=== PATIENT | male | born 1955 | race Caucasian/White ===

== ENCOUNTER 2018-09-14 10:29 | Emergency (ER) | payer OTHER ==
[2018-09-14 12:48] VITALS: BP 146/80
--- NOTE | 2018-09-14 12:56 | ED Physician Documentation ---
History of Present Illness - Stated complaint Stated Complaint: THROAT PX - Chief complaint Chief Complaint: Heent - History obtained from History obtained from: Patient, Family - History of Present Illness Timing: Today Pain level max: 3 Pain level now: 3 - Additonal information Additional information: 63-year-old male with sore throat for the past day. His grandchildren are sick with streptococcal pharyngitis. Concerned about same. No vomiting. No abdominal pain. Has felt warm today. No cough. Better with rest and worse with swallowing Review of Systems Ears: denies: Ear pain Nose: denies: Rhinorrhea / runny nose, Congestion Throat: reports: Sore throat Respiratory: denies: Cough GI: denies: Vomiting, Diarrhea Skin: denies: Rash Musculoskeletal: denies: Neck pain, Back pain Neurologic: denies: Headache PD PAST MEDICAL HISTORY - Past Medical History Past Medical History: Yes Cardiovascular: Hypertension, High cholesterol - Past Surgical History Past Surgical History: No - Present Medications Home Medications: Ambulatory Orders Medication Instructions Recorded Confirmed Aspirin 09/14/18 Donepezil [Aricept] 09/14/18 Losartan [Cozaar] 09/14/18 NIFEdipine [Nifedipine] 09/14/18 Penicillin V Potassium 500 mg PO Q6HR #40 tablet 09/14/18 Pregabalin [Lyrica] 09/14/18 oxyCODONE [Roxicodone] 09/14/18 09/14/18 - Allergies Allergies/Adverse Reactions: Allergies Allergy/AdvReac Type Severity Reaction Status Date / Time allopurinol Allergy Nausea Verified 09/14/18 11:09 PD ED PE NORMAL - Vitals Vital signs reviewed: Yes - General General: Alert and oriented X 3, No acute distress - HEENT HEENT: Ears normal, Moist mucous membranes, Other (Mild posterior pharyngeal erythema without tonsillar exudates. Uvula midline. Normal phonation. No trismus) - Neck Neck: Supple, no meningeal sign, No adenopathy - Cardiac Cardiac: RRR - Respiratory Respiratory: No respiratory distress, Clear bilaterally - Derm Derm: Warm and dry - Neuro Neuro: Alert and oriented X 3 Results - Vitals Vitals: Vital Signs - 24 hr 09/14/18 09/14/18 11:08 12:47 Temperature 36.8 C 36.7 C Heart Rate 66 67 Respiratory 15 18 Rate Blood Pressure 145/71 H 146/80 H O2 Saturation 95 96 Oxygen O2 Source Room air - Labs Labs: Laboratory Tests 09/14/18 11:10 Group A Strep Rapid POSITIVE H PD MEDICAL DECISION MAKING - ED course Complexity details: reviewed results, considered differential, d/w patient ED course: 63-year-old male with positive rapid strep. Will treat for strep pharyngitis. Well-appearing, nontoxic. Afebrile. Tolerating p.o. without difficulty. Well-hydrated. Patient counseled regarding signs and symptoms for which I believe and urgent re-evaluation would be necessary. Patient with good understanding of and agreement to plan and is comfortable going home at this time This document was made in part using voice recognition software. While efforts are made to proofread this document, sound alike and grammatical errors may occur. Departure - Departure Disposition: 01 Home, Self Care Clinical Impression: Strep pharyngitis Condition: Good Instructions: ED Strep Pharyngitis Conf Follow-Up: your,doctor in 2 weeks if not better [Other] Prescriptions: Penicillin V Potassium 500 mg PO Q6HR #40 tablet Comments: Take all antibiotics until gone. Return if you worsen. Your prescription has been sent to [facility] [place]
== END 2018-09-14 13:00 | disposition home or self-care (01) ==
LOC: ED 10:29
DX: J02.0 Streptococcal pharyngitis (principal); I10 Essential (primary) hypertension
CPT/HCPCS: 87430; 99282; 99283